=== PATIENT | female | born 1980 | race Caucasian/White ===

== ENCOUNTER 2021-05-24 00:37 | Emergency (ER) | payer OTHER, SELFPAY ==
--- NOTE | ~2021-05-24 | CT_ITS ---
EXAMINATION: CT abdomen pelvis wo con DATE: 05/24/2021 04:34 INDICATION: Nausea and vomiting TECHNIQUE: Computed tomography (CT) of the abdomen and pelvis was performed without intravenous contr ast. The dose-length product (DLP) was 491.60 mGy-cm. Automated exposure control and iterative recons truction technique were employed. COMPARISON: None FINDINGS: There is moderate emphysema visualized lung bases. Within the limitations of noncontrast ex amination, the liver, spleen, pancreas, gallbladder, and adrenal glands are normal. The kidneys are u nremarkable. No pathologically enlarged abdominal or pelvic lymph nodes are identified. There is no f ree intraperitoneal gas or evidence of bowel obstruction. The appendix is normal. There is mild lumba r spondylosis. There are tiny midline ventral hernias containing fat just above the umbilicus. IMPRESSION: 1. No CT correlate for the patient's symptoms. Reviewed, dictated and finalized at location A.
[2021-05-24 01:06] VITALS: BP 141/107; PULSE 116; RESP 18; TEMP 37.1; O2SAT 98
[2021-05-24 02:40] VITALS: BP 123/84; PULSE 105; RESP 18; O2SAT 97
--- NOTE | 2021-05-24 02:41 | PC.NURSE ---
Pt also reports swelling in hands and feet. States shes gained 20 lbs in the last 2 months. States this started after an intentional overdose 6-8 months ago.
--- NOTE | 2021-05-24 03:30 | PC.NURSE ---
Report given to Leana Negrete RN
[2021-05-24] MEDS: DICYCLOMINE HCL INJ 20 MG/2 ML VIAL IM (03:43)
--- NOTE | 2021-05-24 03:54 | PC.NURSE ---
Patient is tough stick, multiple attempts by multiple RNs. 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
--- NOTE | 2021-05-24 04:25 | PC.NURSE ---
Patient taken to CT. Unsuccessful at IV and blood draw attempts. ERP notified.
[2021-05-24] MEDS: PROCHLORPERAZINE EDISYLATE 10 MG/2 ML VIAL IM (04:44)
[2021-05-24 05:18] LABS: Alanine Aminotransferase 29 U/L (4-35); Albumin Level 4.6 g/dL (3.5-5.1); Alkaline Phosphatase 56 U/L (38-126); Anion Gap 12 mmol/L (8-16); Aspartate Amino Transferase 32 U/L (14-36); Bilirubin,Total 0.6 mg/dL (0.2-1.3); Blood Urea Nitrogen 13 mg/dL (7-17); Calcium 9.9 mg/dL (8.4-10.2); Carbon Dioxide 21 mmol/L (22-30); Chloride 109 mmol/L (98-107); Estimated CRCL calculation 85 ml/min; Estimated Glomerular Filt Rate > 60; Glucose 115 mg/dL (65-110); Lipase 60 U/L (23-300); Magnesium 1.9 mg/dL (1.6-2.3); Potassium 3.7 mmol/L (3.4-5.0); Sodium 142 mmol/L (137-145)
--- NOTE | 2021-05-24 05:18 | ED.GENADULT ---
HPI - General Adult General Chief complaint: Nausea/Vomiting/Diarrhea Stated complaint: vomiting Time Seen by Provider: 05/24/21 02:57 History of Present Illness HPI narrative: Patient is a 41-year-old female who presents the emergency department with complaint of nausea vomiting and diarrhea. 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 The patient states that she is had no fever reports that symptoms or not improved with anything nor they worsened by anything Related Data Home Medications Medication Instructions Recorded Confirmed buprenorphine-naloxone [Suboxone] film 05/24/21 celecoxib mg 05/24/21 cyclobenzaprine mg 05/24/21 Allergies Allergy/AdvReac Type Severity Reaction Status Date / Time cephalexin Allergy Mild Unknown Verified 05/24/21 02:44 midazolam Allergy Mild Unknown Verified 05/24/21 02:44 naloxone [From Narcan] Allergy Unknown Verified 05/24/21 02:44 Review of Systems Review of Systems: A 10 system review of systems was completed on the patient and is negative except for what is stated in the HPI. Nursing and ancillary documentation was reviewed. Exam Narrative: GENERAL: Well-appearing, well-nourished, and in no acute distress. HEAD: Normocephalic, atraumatic. EYES: PERRLA and EOMI. ENT: Nares clear, no rhinorrhea or epistaxis. Mucous membranes moist. NECK: Supple. CHEST: Clear to auscultation. No respiratory distress. HEART: Regular rate and rhythm. No murmur heard. Normal peripheral pulses. ABDOMEN: Soft, nontender, nondistended, normal active bowel sounds. EXTREMITIES: Normal range of motion. No edema. SKIN: Warm, dry, no rash. NEURO: No focal deficits. Alert and oriented x3. PSYCH: Normal mood and affect. Course Vital Signs Vital signs: Vital Signs Temperature 37.1 C 05/24/21 01:06 Pulse Rate 116 H 05/24/21 01:06 Respiratory Rate 18 05/24/21 01:06 Blood Pressure 141/107 H 05/24/21 01:06 Pulse Oximetry 98 05/24/21 01:06 Temperature 36.8 C 05/24/21 06:26 Pulse Rate 82 05/24/21 06:26 Respiratory Rate 20 05/24/21 06:26 Blood Pressure 125/70 05/24/21 06:26 Pulse Oximetry 95 05/24/21 06:26 Medical Decision Making Vital Signs Vital Signs: Vital Signs Temperature 37.1 C 05/24/21 01:06 Pulse Rate 116 H 05/24/21 01:06 Respiratory Rate 18 05/24/21 01:06 Blood Pressure 141/107 H 05/24/21 01:06 Pulse Oximetry 98 05/24/21 01:06 Temperature 36.8 C 05/24/21 06:26 Pulse Rate 82 05/24/21 06:26 Respiratory Rate 20 05/24/21 06:26 Blood Pressure 125/70 05/24/21 06:26 Pulse Oximetry 95 05/24/21 06:26 Lab Data Result diagrams: 05/24/21 04:53 05/24/21 04:53 Labs: Lab Results 05/24/21 05/24/21 Range/Units 04:53 04:53 WBC 10.8 H (4.5-10.0) K/mm3 RBC 4.53 (4.2-5.4) M/mm3 Hgb 15.3 H (12.0-15.0) g/dL Hct 43.8 (37.0-47.0) % MCV 96.7 (80-100) fl MCH 33.8 (26-34) pg MCHC 34.9 (32-36) g/dl RDW 13.9 (11.5-14.5) % Plt Count 441 H (150-375) k/mm3 MPV 9.9 (7.4-10.4) fl Immature Gran % (Auto) 0.3 (0-0.5) % Neut % (Auto) 53.6 (45.5-73.1) % Lymph % (Auto) 34.3 (18.3-44.2) % Louisa % (Auto) 10.6 H (2.6-8.5) % Eos % (Auto) 0.8 (0-4.4) % Baso % (Auto) 0.4 (0.2-1.2) % Lymph # (Auto) 3.69 H (0.9-3.2) K/mm3 Louisa # (Auto) 1.1 H (0.1-0.6) K/mm3 Eos # (Auto) 0.1 (0-0.3) K/mm3 Baso # (Auto) 0.0 (0.0-0.1) K/mm3 Abs Immat Gran (auto) 0.03 (0.00-0.031) K/mm3 Absolute Neuts (auto) 5.8 (1.3-6.7) K/mm3 Absolute Nucleated RBC 0.0 (0.0-0.012) K/mm3 Nucleated RBC % 0.0 (0.0-0.2) % Sodium 142 (137-145) mmol/L Potassium 3.7 (3.4-5.0) mmol/L Chloride 109 H (98-107) mmol/L Carbon Dioxide 21 L (22-30) mmol/L Anion Gap 12 (8-16) mmol/L BUN 13 (7-17) mg/dL C
[2021-05-24 05:28] LABS: Basophils Percent Auto 0.4 % (0.2-1.2); Eosinophils Absolute Auto 0.1 K/mm3 (0-0.3); Eosinophils Percent Auto 0.8 % (0-4.4); Hematocrit 43.8 % (37.0-47.0); Hemoglobin 15.3 g/dL (12.0-15.0); Immature Granulocyte Absolute 0.03 K/mm3 (0.00-0.031); Immature Granulocyte Percent A 0.3 % (0-0.5); Lymphocytes Absolute Auto 3.69 K/mm3 (0.9-3.2); Lymphocytes Percent Auto 34.3 % (18.3-44.2); Mean Corpuscular HGB Conc 34.9 g/dl (32-36); Mean Corpuscular Hemoglobin 33.8 pg (26-34); Mean Corpuscular Volume 96.7 fl (80-100); Mean Platelet Volume 9.9 fl (7.4-10.4); Monocytes Absolute Auto 1.1 K/mm3 (0.1-0.6); Monocytes Percent Auto 10.6 % (2.6-8.5); Neutrophils Absolute Auto 5.8 K/mm3 (1.3-6.7); Neutrophils Percent Auto 53.6 % (45.5-73.1); Platelet Count Result 441 k/mm3 (150-375); Red Blood Count 4.53 M/mm3 (4.2-5.4); Red Cell Distribution Width 13.9 % (11.5-14.5); White Blood Count 10.8 K/mm3 (4.5-10.0)
[2021-05-24 06:26] VITALS: BP 125/70; PULSE 82; RESP 20; TEMP 36.8; O2SAT 95
[2021-05-24] MEDS: ONDANSETRON HCL ODT 4 MG TABLET 8 MG PO (06:47)
--- NOTE | 2021-05-24 06:59 | PC.NURSE ---
Patient seen leaving the ED with her family member and her belongings. Patient seen getting into car. ERP notified, no iv in place.
== END 2021-05-24 07:00 | disposition left against medical advice (07) ==
PROVIDERS: Emergency Provider Emergency Medicine; PCP Physician Assistant
DX: R11.2 Nausea with vomiting, unspecified (principal); R10.84 Generalized abdominal pain
CPT/HCPCS: 36415; 74176; 80053; 83690; 83735; 85025; 96372; 99284; A9270; J0500; J0780

== ENCOUNTER 2022-04-08 19:50 | Emergency (ER) | payer OTHER, SELFPAY ==
--- NOTE | ~2022-04-08 | XR_ITS ---
EXAMINATION: XR shoulder RT min 2V DATE: 04/08/2022 20:22 INDICATION: Right shoulder pain TECHNIQUE: AP internally and externally rotated, AP oblique externally rotated and transscapular Y vi ews of the right shoulder were obtained. COMPARISON: None FINDINGS: Normal alignment. No fracture.Moderate osteoarthritis at the right glenohumeral joint with nonunifor m joint space narrowing and moderate-sized marginal osteophytes about both the humeral head and aceta bulum. Acromioclavicular joint is normal. Soft tissues are unremarkable. Visualized portions of the l ungs are clear. IMPRESSION: Moderate right glenohumeral osteoarthritis. Reviewed, dictated and finalized at location A.
[2022-04-08 19:51] VITALS: BP 149/99; PULSE 92; RESP 18; TEMP 36.3; O2SAT 99
[2022-04-08] MEDS: KETOROLAC (*BKC) 60 MG/2 ML VIAL IM (20:26)
[2022-04-08] MEDS: CYCLOBENZAPRINE HCL 10 MG TABLET PO (20:27)
--- NOTE | 2022-04-08 21:01 | ED.UPPEXIN ---
HPI - Extremity Injury (Upper) General Chief Complaint: Extremity Injury, Upper Stated Complaint: arm pain Time Seen by Provider: 04/08/22 19:54 History of Present Illness HPI narrative: Patient is a 42-year-old female who presents ER with right shoulder pain. Ongoing for last couple weeks. Aching. Worse on the anterior aspect. Worse with lifting and range of motion. No swelling or redness. No fevers or chills or sweats. Occasionally will get some tingling going down her right arm. No improvement with ibuprofen. Denies trauma. Related Data Home Medications Medication Instructions Recorded Confirmed buprenorphine 4 mg-naloxone 1 mg film 05/24/21 sublingual film (Suboxone) celecoxib 100 mg capsule mg 05/24/21 cyclobenzaprine 5 mg tablet mg 05/24/21 Allergies Allergy/AdvReac Type Severity Reaction Status Date / Time cephalexin Allergy Mild Unknown Verified 04/08/22 19:55 midazolam Allergy Mild Unknown Verified 04/08/22 19:55 naloxone [From Narcan] Allergy Unknown Verified 04/08/22 19:55 Review of Systems Constitutional: Constitutional: Denies chills and Denies fever(s) Cardiovascular: Cardiovascular: Denies chest pain, Denies rapid heart rate and Denies radiating jaw, neck or arm pain Musculoskeletal: Musculoskeletal: Denies back pain, Reports arthralgias, Denies joint swelling and Denies muscle cramps Neurologic: Denies focal weakness and Denies numbness Comments: Intermittent right arm tingling Exam Narrative: GENERAL: Well-appearing, well-nourished, and in no acute distress. HEAD: Normocephalic, atraumatic. CHEST: Clear to auscultation. No respiratory distress. HEART: Regular rate and rhythm. Normal peripheral pulses. EXTREMITIES: Focused exam of the right upper extremity reveals increased discomfort with external rotation and trying to reach back towards the midline of the spine. Neurovascular intact. Mild discomfort to the anterior joint line. No swelling or redness. No axillary lymph nodes. SKIN: Warm, dry, no rash. NEURO: No focal deficits. Alert and oriented x3. PSYCH: Normal mood and affect. Course Course Emergency Course: Patient able to move her arm quite well despite pain and will even lean on her elbow against the bed without discomfort. X-ray with arthritis. Patient given Toradol and Flexeril here. Will treat with continued anti-inflammatories muscle laxer at home. Recommend follow-up with PCP and will also give Ortho phone number. Patient may benefit from joint injection and physical therapy. Vital Signs Vital signs: Vital Signs Temperature 97.3 F L 04/08/22 19:51 Pulse Rate 92 04/08/22 19:51 Respiratory Rate 18 04/08/22 19:51 Blood Pressure 149/99 H 04/08/22 19:51 Pulse Oximetry 99 04/08/22 19:51 Oxygen Delivery Room Air 04/08/22 19:51 Temperature 97.3 F L 04/08/22 19:51 Pulse Rate 92 04/08/22 19:51 Respiratory Rate 18 04/08/22 19:51 Blood Pressure 149/99 H 04/08/22 19:51 Pulse Oximetry 99 04/08/22 19:51 Oxygen Delivery Room Air 04/08/22 19:51 MDM - Extremity Injury (Upper) Imaging Data Radiologist's impression: ITS Impressions Shoulder X-Ray 04/08/22 20:33 IMPRESSION: Moderate right glenohumeral osteoarthritis. Discharge Plan Discharge Clinical Impression: Arthritis of glenohumeral joint Patient Disposition: Home, Self-Care Condition: Stable Instructions: Arthritis (ED) Additional Instructions: Return the ER if you have worsening pain, you have a red/swollen joint, develop fever over 100.4 ?F, you have additional concerns. Prescriptions: New cyclobenzaprine 10 mg tablet 10 mg PO TID PRN (Reason: muscle spasm) Qty: 20 0RF naproxen 375 mg tablet 375 mg PO BID Qty: 14 0RF No Action celecoxib 100 mg capsule cyclobenzaprine 5 mg tablet buprenorphine-naloxone [Suboxone] 4-1 mg film Follow-up/Referrals: Fabrice,JOLIE Melendrez [Primary
== END 2022-04-08 21:37 | disposition home or self-care (01) ==
PROVIDERS: Emergency Provider Emergency Medicine; PCP Physician Assistant
DX: M19.011 Primary osteoarthritis, right shoulder (principal)
CPT/HCPCS: 73030; 96372; 99283; A9270; J1885